=== PATIENT | male | born 1950 | race Caucasian/White ===

== ENCOUNTER 2022-03-12 06:16 | Inpatient (IN) ==
--- NOTE | 2022-02-19 09:31 | PAT Medication Instructions ---
Medication Instructions Date of Service February 19, 2022 Home Medications aspirin 81 mg tablet 81 mg PO QAM atorvastatin 40 mg tablet 40 mg PO QAM cholecalciferol (vitamin D3) 25 mcg (1,000 unit) tablet (Vitamin D3) 25 mcg PO UD coenzyme Q10 100 mg capsule (Co Q-10) 100 mg PO QAM famotidine 20 mg tablet (Pepcid AC) 20 mg PO QAM flaxseed oil 1,000 mg capsule 1,000 mg PO QPM flecainide 100 mg tablet 100 mg PO BID metoprolol tartrate 25 mg tablet 25 mg PO QPM boqeqkccisgy-vtywkuzt-tjegpc tablet 1 tab PO QAM omega-3 fatty acids 500 mg PO QPM saw palmetto 450 mg capsule 450 mg PO BID vitamin B12 2,500 mcg-folic acid 400 mcg disintegrating tablet 5,000 tab PO QAM ASK your prescriber and surgeon aspirin 81 mg tablet 81 mg PO QAM STOP taking 2 weeks before surgery (or as soon as possible if surgery is within 2 weeks) coenzyme Q10 100 mg capsule (Co Q-10) 100 mg PO QAM flaxseed oil 1,000 mg capsule 1,000 mg PO QPM cfqjargxokrb-pzdigxbb-oegjyf tablet 1 tab PO QAM omega-3 fatty acids 500 mg PO QPM saw palmetto 450 mg capsule 450 mg PO BID DO NOT take the morning of surgery cholecalciferol (vitamin D3) 25 mcg (1,000 unit) tablet (Vitamin D3) 25 mcg PO UD vitamin B12 2,500 mcg-folic acid 400 mcg disintegrating tablet 5,000 tab PO QAM Take morning of surgery With a small sip of water, OTHERWISE NOTHING TO EAT OR DRINK AFTER MIDNIGHT: atorvastatin 40 mg tablet 40 mg PO QAM famotidine 20 mg tablet (Pepcid AC) 20 mg PO QAM flecainide 100 mg tablet 100 mg PO BID Take evening before surgery flecainide 100 mg tablet 100 mg PO BID metoprolol tartrate 25 mg tablet 25 mg PO QPM Other Notes If you have any questions please call us at [phone] or [phone] or [phone] or [phone]
--- NOTE | 2022-02-19 11:24 | Anesthesiology Consultation ---
Date of Service February 19, 2022 Assessment & Plan (1) Encounter for pre-operative examination: - COVID screening: Per assessment on 02/19: No known COVID-19 positive contacts or current COVID-19 related symptoms. Travel screen- returned from travel to [place] 02/18 (via car)- stayed at rental house, no large groups/gatherings. Patient vaccinated. At surgeon discretion if preop Covid testing being done. - Cardiology office visit (10/12/21): "paroxysmal atrial fibrillation.. Has been very stable without any complaints or palpitations.. As far as anticoagulation he continues to have a chads vascular score of 1 therefore we will continue with aspirin 81 mg daily for this. When he does turn 73.. That we will give him a score of 2 and we may have to consider additional anticoagulation at that point.. Osteoarthritis of the back.. He is due to followup with his orthopedic surgeon in several weeks." - PCP office visit (12/06/21): Chronic issues stable Chart Review Chart Review: Acceptable Risk for Surgery and Patient seen in Pre Admission Testing Teaching & Discussion Pre-Anesthesia Teaching/Discussion Notes: Instructed NPO after midnight before surgery,except medications with 15 cc of water. Medication instructions provided according to the PAT guidelines. History Surgery Operation Date: 03/12/22 09:20 Proposed Procedures p L2-L3 Decompression and Fusion, L3-L5 Hardware Removal, Spinal Cord Monitoring - Thony Bob DO Height/Weight Height: 5 ft 9.5 in Weight: 87.5 kg Allergies Allergy/AdvReac Type Severity Reaction Status Date / Time No Known Allergies Allergy Unverified 02/16/13 13:37 Medications Home Medications Medication Instructions Recorded Confirmed Last Taken aspirin 81 mg tablet 81 mg PO QAM 02/19/22 02/19/22 Unknown atorvastatin 40 mg tablet 40 mg PO QAM 02/19/22 02/19/22 Unknown cholecalciferol (vitamin D3) 25 25 mcg PO UD 02/19/22 02/19/22 Unknown mcg (1,000 unit) tablet (Vitamin D3) coenzyme Q10 100 mg capsule (Co 100 mg PO QAM 02/19/22 02/19/22 Unknown Q-10) famotidine 20 mg tablet (Pepcid AC) 20 mg PO QAM 02/19/22 02/19/22 Unknown flaxseed oil 1,000 mg capsule 1,000 mg PO QPM 02/19/22 02/19/22 Unknown flecainide 100 mg tablet 100 mg PO BID 02/19/22 02/19/22 Unknown metoprolol tartrate 25 mg tablet 25 mg PO QPM 02/19/22 02/19/22 Unknown znkirbregsng-gkmknrki-hzvpgi tablet 1 tab PO QAM 02/19/22 02/19/22 Unknown omega-3 fatty acids 500 mg PO QPM 02/19/22 02/19/22 Unknown saw palmetto 450 mg capsule 450 mg PO BID 02/19/22 02/19/22 Unknown vitamin B12 2,500 mcg-folic acid 5,000 tab PO QAM 02/19/22 02/19/22 Unknown 400 mcg disintegrating tablet Past Medical History Medical History A-fib Initially diagnosed 2013- a. fib with RVR POD2 after lumbar fusion at [facility]. No recent issues. Follows with cardiology (Dr. Bravo/Malik) Hyperlipidemia Hypertension Sleep apnea CPAP Exercise / Class Metabolic Activity II 4-5 Yardwork/Stairs/Walk up hill (one FS (no CP, no SOB)) Past Surgical History Surgical History History of back surgery lumbar S/P colonoscopy S/P ORIF (open reduction internal fixation) fracture left ankle Past Anesthesia History No Hx of Anesthesia Complications and No Family Hx of Anesthesia Complications History of PONV No Hx of PONV and No Hx of Motion Sickness Social History Smoking Status: Former smoker Do You Dip or Chew Tobacco: No Smoking End Date: Quit 38 yrs ago Hx Alcohol Use: Yes (1 per day) Alcohol type: beer alcohol intake frequency: 0-2 drinks per day (1 beer/evening) Hx Substance Use: No substance use type: does not use Review of Systems Chronic morning cough felt r/t CPAP machine (unchanged). Patient denies chest pain, shortness of breath, dyspnea on exertion, fever, chills, wheezing, palpitations. Physical Exam Vital Signs VITALS BP 136/83 P 50 TEMP 98.0 SP02 96%RA RESP 16 PHYSICAL Full cervical extension range of motion. Full TMJ range of motion. TMD 3.5 finger breaths Mallampati Score 3 Dentition: missing molar, + implant, + cap (front- unsure of upper/lower) Lungs: clear throughout to auscultation Cardiac: regular rate and rhythm, no murmurs noted Spine: normal Carotid arteries: negative bruit Extremities: no edema Lab Results Anesthesia Preop Results Results Anesthesia Widget: WBC 7.86 K/ul (4.8-10.8) 02/19/22 Hgb 16.0 g/dl (14.0-18.0) 02/19/22 Hct 46.0 % (40.1-51.0) 02/19/22 Plt 202 K/uL (130-400) 02/19/22 Na 135 mmol/L (136-145) L 02/19/22 K 4.0 mmol/L (3.5-5.1) 02/19/22 Cl 102 mmol/L (98-107) 02/19/22 CO2 25 mmol/L (21-32) 02/19/22 BUN 16 mg/dl (6-23) 02/19/22 Creat 0.86 mg/dl (0.6-1.4) 02/19/22 Glucose Level 104 mg/dl (70-99(Fasting)) H 02/19/22 PT 11.6 Seconds (9.0-12.0) 02/19/22 PTT 28.0 Seconds (21.0-31.0) 02/19/22 INR 1.1 (0.9-1.1) 02/19/22 Urine Color Yellow 02/19/22 Urine Appearance Clear (Clear) 02/19/22 Urine pH 6.0 (4.5-7.5) 02/19/22 Urine Specific [place] 1.022 (1.000-1.030) 02/19/22 Urine Protein Negative (Negative) 02/19/22 Urine Glucose (UA) Negative (Negative) 02/19/22 Urine Ketones Negative (Negative) 02/19/22 Urine Blood Negative (Negative) 02/19/22 Urine Nitrite Negative (Negative) 02/19/22 Urine Bilirubin Negative (Negative) 02/19/22 Urine Urobilinogen Negative (Negative) 02/19/22 Urine Leukocyte Esterase Negative (Negative) 02/19/22 Blood Type O Positive 02/19/22 Antibody Screen NEGATIVE 02/19/22 Testing Electrocardiogram Date: 02/19/22 Sinus bradycardia at 50 bpm. Otherwise "normal ECG" Chest X-Ray Date: 02/19/22 Findings: + NAD
[~2022-03-12 06:16] MED LIST: ACETAMINOPHEN 500 MG TAB PO SCH; CeleBREX 200 MG CAP PO SCH; GABAPENTIN 300 MG CAP PO SCH; LR 15ML/HR IV SCH; ceFAZolin 2000MG 2,000 MG/15 ML SYR IV SCH
[2022-03-12] MEDS ORDERED: HYDROmorphone INJ 1 MG/ML SYRINGE IV PRN ×2 (06:56→11:07)
[2022-03-12] MEDS ORDERED: ePHEDrine sulfate 50 MG/ML AMP IV PRN (06:56)
[2022-03-12] MEDS ORDERED: fentaNYL citrate 100 MCG/2 ML VIAL IV PRN (06:56)
[2022-03-12] MEDS ORDERED: ATROPINE SULFATE 0.1 MG/ML 10ML SYR IV PRN (06:56)
[2022-03-12] MEDS ORDERED: BUPIVACAINE/EPINEPHRINE 0.25% 1:200,000 30 ML VIAL ONE (07:06)
[2022-03-12] MEDS ORDERED: ceFAZolin 330 MG/ML 1 GM VIAL ONE (07:06)
[2022-03-12] MEDS ORDERED: fentaNYL citrate 100 MCG/2 ML VIAL ONE ×2 (07:15→09:36)
[2022-03-12] MEDS ORDERED: MIDAZOLAM HCL 1 MG/ML 2ML VIAL ONE (07:15)
[2022-03-12] MEDS ORDERED: ROCURONIUM BROMIDE 10 MG/ML 5 ML VIAL IV ONE ×2 (07:16→11:00)
[2022-03-12] MEDS ORDERED: PROPOFOL IV EMULSION 10 MG/ML 20 ML VIAL IV ONE (07:16)
[2022-03-12] MEDS ORDERED: LIDOCAINE 2% MPF LOCAL 5 ML VIAL INFIL ONE (07:16)
[2022-03-12] MEDS ORDERED: ONDANSETRON INJ 2 MG/ML 2 ML VIAL ONE ×2 (07:16→11:00)
--- NOTE | 2022-03-12 07:31 | History & Physical Bridge Note ---
Date of Service March 12, 2022 History & Physical Bridge Note I have examined the patient, reviewed the History & Physical and in the interval since the performance of the History & Physical I have noted the following changes of clinical significance: no changes noted
--- NOTE | 2022-03-12 07:32 | History & Physical Report ---
Date of Service March 12, 2022 Assessment & Plan (1) Neurogenic claudication due to lumbar spinal stenosis: Plan: L2-L3 decompression and fusion, L3-L5 hardware removal History of Present Illness Chief Complaint: Back and bilateral leg pain Primary Care Provider: Rhoda Marvin This is a 71-year-old male who presents with chronic persistent back and leg pain after failing course of nonoperative care is here for surgical intervention. Allergies Allergy/AdvReac Type Severity Reaction Status Date / Time No Known Allergies Allergy Verified 03/12/22 06:37 Home Medications Medication Instructions Recorded Confirmed Type aspirin 81 mg tablet 81 mg PO QAM 02/19/22 03/12/22 History atorvastatin 40 mg tablet 40 mg PO QAM 02/19/22 03/12/22 History cholecalciferol (vitamin D3) 25 25 mcg PO UD 02/19/22 03/12/22 History mcg (1,000 unit) tablet (Vitamin D3) coenzyme Q10 100 mg capsule (Co 100 mg PO QAM 02/19/22 03/12/22 History Q-10) famotidine 20 mg tablet (Pepcid AC) 20 mg PO QAM 02/19/22 03/12/22 History flaxseed oil 1,000 mg capsule 1,000 mg PO QPM 02/19/22 03/12/22 History flecainide 100 mg tablet 100 mg PO BID 02/19/22 03/12/22 History metoprolol tartrate 25 mg tablet 25 mg PO QPM 02/19/22 03/12/22 History ojqkzpcbttfp-qamajqwk-watuia tablet 1 tab PO QAM 02/19/22 03/12/22 History omega-3 fatty acids 500 mg PO QPM 02/19/22 03/12/22 History saw palmetto 450 mg capsule 450 mg PO BID 02/19/22 03/12/22 History vitamin B12 2,500 mcg-folic acid 5,000 tab PO QAM 02/19/22 03/12/22 History 400 mcg disintegrating tablet Past Med/Surg History Medical History A-fib Initially diagnosed 2013- a. fib with RVR POD2 after lumbar fusion at [facility]. No recent issues. Follows with cardiology (Dr. Bravo/Malik) Hyperlipidemia Hypertension Sleep apnea CPAP Surgical History History of back surgery lumbar S/P colonoscopy S/P ORIF (open reduction internal fixation) fracture left ankle Social History Smoking Status: Former smoker Smoking End Date: Quit 38 yrs ago; Second Hand Exposure: No; Do You Dip or Chew Tobacco: No; Tobacco Cessation Education Requested by Patient: No Hx Alcohol Use: Yes (1 per day) Alcohol type: beer Hx Substance Use: No Preferred Language: Arabic Communication Ability: Effective Payment Manager Required: No Beliefs That Will Affect Care: None Current Living Situation: Spouse Other Information That Helps Us Care for You: No Feels Safe at Home: Yes Safety Concerns: Feels Safe At This Time Assistive Devices: CPAP and Glasses Physical Exam Physical Exam: Patient is alert and oriented Heart regular rhythm Lungs clear Results & Data Results & Data ([facility]) Vital Signs (Past 12 Hours) Vital Signs Temp Pulse Resp BP Pulse Ox O2 Del Method 03/12/22 06:43 36.5 C 56 L 18 169/85 H 97 Room Air
[2022-03-12] MEDS ORDERED: DEXAMETHASONE SOD INJ 4 MG/ML VIAL ONE (07:33)
[2022-03-12] MEDS ORDERED: ePHEDrine sulfate 50 MG/ML SYR ONE (08:20)
[2022-03-12] MEDS ORDERED: FLOSEAL HEMOSTATIC MATRIX 10ML TOP ONE (09:34)
--- NOTE | 2022-03-12 09:39 | Operative Report ---
Post Operative Report Pre & Post Diagnosis Operation Date: 03/12/22 07:45 Pre-Op Diagnosis: Lumbar spinal stenosis with neurogenic claudication Post-Op Diagnosis: Same I identified the patient and participated in the time-out.: Yes Procedure Operation Date: 03/12/22 07:45 Actual Procedures #1 removal of posterior instrumentation L3-L4 L4-5. #2 exploration of fusion L3-L4 L4-5. #3 lumbar decompression bilateral medial facetectomies and foraminotomies L1-L2 L2-L3. #4 posterior spinal fusion L2-L3. #5 placement posterior instrumentation L2-L3. #6 interbody fusion L2-L3. #7 placement of Spira 13 x 26 mm cage at L2-L3. #8 placement locally harvested morselized autograft in the posterior gutters. #9 placement of I factor combined with V toss in the interbody space and posterior lateral gutters. Surgeon Thony Bob, Curtain Cleaner Teena Mendoza Estimated Blood Loss 450 Findings Consistent with Post-Op Diagnosis Specimens None Indications This is a 71-year-old male who presents above-mentioned diagnosis after failing since course of nonoperative care is here for the above-mentioned procedure. Description of Procedure Patient was met with identified informed consent obtained. Patient was then taken to the operative suite underwent a patient placed in a prone position the Blanchard table top Guero frame. All bony prominences well-padded eyes inspected to ensure no external pressure placed upon them. This point the lumbar spine was prepped and draped in normal sterile fashion. Sharp dissection with the assistance pericardial form down to and exposing the lamina and transverse processes of L2 and instrumentation at L3-L4 bilaterally. I then proceeded move the hardware bilaterally explore the fusion mass noting it to be mature and intact. Did retain the L4 screw on the left as it was completely ensconced and bone and was created excess blood loss to removed. Then performed a complete laminectomy of L2 partial laminectomy L1 including bilateral medial facetectomies and foraminotomies addressing severe spinal stenosis. Pedicle screws were then placed in L2-L3 bilaterally with assistance of fluoroscopy and appropriately sized george placed. By way of a transforaminal approach on the right complete discectomy of L2-L3 was performed endplates curetted to subcortical bleeding bone and a 13 x 26 mm spiral cage filled with I factor tapped in position. The rods were then compressed locked into final position bilaterally. The transverse processes of L to L3 burred to subcortical bleeding bone. I factor combined with V toss and locally harvested morselized autograft was placed in the posterior gutters. 15 round LANA drain inserted. The incision was then closed with 1 Vicryl in the fascia 2-0 Vicryl subcutaneously and 4 Monocryl for final skin closure. Steri-Strip Steri-Strips placed. Patient waken taken to PACU stable condition. Please note spinal cord monitoring was utilized at the procedure no changes noted. Lastly Teena Mendoza was present out the entire procedure involved the patient positioning complex portions of the surgery and final skin closure. I attest to the content of the Intraoperative Record and any orders documented therein. Any exceptions are noted below.
[2022-03-12] MEDS ORDERED: traMADol HCL 50 MG TABLET PO PRN (11:07)
[2022-03-12] MEDS ORDERED: ACETAMINOPHEN 1,000 MG/100 ML VIAL IV PRN (11:07)
[2022-03-12] MEDS ORDERED: PROMETHAZINE HCL 12.5 MG in SODIUM CHLORIDE 0.9% 50 ML IV PRN (11:07)
[2022-03-12] MEDS ORDERED: LORazepam 0.5 MG TAB PO PRN (11:07)
[2022-03-12] MEDS ORDERED: ALUMINUM/MAGNESIUM SUSP 30 ML UDC PO PRN (11:07)
[2022-03-12] MEDS ORDERED: ONDANSETRON INJ 2 MG/ML 2 ML VIAL IV PRN (11:07)
[2022-03-12] MEDS ORDERED: HYDROmorphone INJ 0.5 MG/0.5 ML SYR IV PRN (11:07)
[2022-03-12] MEDS ORDERED: METOCLOPRAMIDE HCL INJ 5 MG/ML 2 ML VIAL IV PRN (11:07)
[2022-03-12] MEDS ORDERED: LORazepam 0.5 MG in SYRINGE 0.25 ML IV PRN (11:07)
[2022-03-12] MEDS ORDERED: SOD PHOSPHATE/SOD BIPHOSPHATE ENEMA 132 ML BTL PR PRN (11:07)
[2022-03-12] MEDS ORDERED: ONDANSETRON 4 MG OD TAB PO PRN (11:07)
[2022-03-12] MEDS ORDERED: hydrOXYzine HCl 25 MG TAB PO PRN (11:07)
[2022-03-12] MEDS ORDERED: bisacodyL 10 MG SUPP PR PRN (11:07)
[2022-03-12] MEDS ORDERED: FAMOTIDINE 20 MG TAB PO PRN (11:07)
[2022-03-12] MEDS ORDERED: diphenhydrAMINE Capsule 25 MG CAP PO PRN (11:07)
[2022-03-12] MEDS ORDERED: MAGNESIUM HYDROXIDE SUSP 30 ML UDC PO PRN (11:07)
[2022-03-12] MEDS ORDERED: oxyCODONE HCL IR 5 MG TAB (IMMEDIATE RELEASE) PO PRN (11:07)
[2022-03-12] MEDS ORDERED: NALOXONE HCL 0.4 MG/1 ML VIAL/CARP IV PRN (11:07)
[2022-03-12] MEDS: SODIUM CHLORIDE 0.9% 1000ML 1,000 ML IV SCH ×2 (11:33→20:55)
[2022-03-12] MEDS ORDERED: CHOLECALCIFEROL 1,000 UNITS 25 MCG TAB PO SCH (12:00)
--- NOTE | 2022-03-12 13:03 | Fluoroscopy Report ---
FL lumbar spine 2-3V CLINICAL HISTORY: L3-5 REMOVE HARDWARE L2-3 DFI COMPARISON STUDY: None. FLUOROSCOPY TIME: 11 seconds.. FINDINGS: 2 fluoroscopic spot images of the lumbar spine demonstrate L2-L3 posterior decompression an d fusion with pedicle screws and rods. The hardware appears intact. A disc spacer is in place. A righ t L4 pedicle screw and L4-5 disc spacer also noted. IMPRESSION: Fluoroscopic assistance provided for L2-L3 posterior decompression and fusion. ACT 112: Negative or not required by law. Electronically signed by: Rashid Valera M.D. 03/12/2022 1:02 PM
--- NOTE | 2022-03-12 13:06 | Hospitalist Consultation ---
Date of Consultation March 12, 2022 Assessment & Plan (1) Neurogenic claudication due to lumbar spinal stenosis: POD #0 - Lumbar Decompression and Fusion - Pain control, DVT prophylaxis, activity per primary service - Encourage incentive spirometry - AM labs (2) A-fib: Continue flecainide and metoprolol (3) Hyperlipidemia: Continue statin (4) Hypertension: BP controlled at present - continue metoprolol (5) Sleep apnea: Pt can use own CPAP - order placed. Plan Pt seen and reviewed with collaborating physician, Dr. Hope. Plan of care discussed and as outlined above. We will continue to follow this patient with you. Thank you for this consultation. A member of the [facility] Team is available 21/01 via [facility]. Please don't hesitate to reach out with questions. Amira Llanes PA-C Supervising Physician Co-Signing Physician Notes Patient is a 71-year-old male with history of obstructive sleep apnea and other medical problems was consulted for postop medical management. Patient is doing well postoperatively. Complains of some nausea earlier but currently resolved. Also reports some throat discomfort postoperatively. Denies any significant pain at the surgical site. Also denies any chest pain, shortness of breath, dizziness, abdominal pain. On exam patient is well-built and nourished, no apparent distress, normocephalic atraumatic, EOMI, normal breath sounds, clear to auscultation, S1-S2, no murmur, no pedal edema, abdomen soft, nontender, normal bowel sounds, alert, awake, oriented, grossly no focal deficits, Back: Surgical site in dressing. Lumbar spinal stenosis with neurogenic claudication S/P surgery. Monitor for postop anemia. Incentive spirometer. Pain control, DVT prophylaxis and PT OT as per primary team. Continue CPAP for obstructive sleep apnea. Patient currently not on any anticoagulation for A. fib. I personally reviewed the record. Patient is interviewed and examined at bedside. Patient's care is coordinated with Narcisa Llanes PA-C. Please refer to the documentation above for details of patient's presentation and for discussion of other issues. History of Present Illness Reason for Consultation: Post-operative Medical Management Requesting Physician: Dr. Thony Bob Attending Physician: Thony Bob, DO History of Present Illness This is a 71 y/o male with PMH of PAF, hyperlipidemia, GERD, and lumbar spinal stenosis who underwent lumbar decompression and fusion today by Dr. Bob. Pt reports that pre-operatively he had some chronic numbness and tingling in his feet related to prior injuries. Currently, he reports overall feeling okay. He did have some mild nausea but this seems to be improving. He also c/o sore throat but denies chest pain, SOB, vomiting, diarrhea, HOLDER, dizziness. He is having some post-operative pain but overall controlled. He does feel groggy from the sedation. Pt uses CPAP for ANTONIO and has brought with him. Allergies Allergy/AdvReac Type Severity Reaction Status Date / Time No Known Allergies Allergy Verified 03/12/22 06:37 Home Medications Medication Instructions Recorded Confirmed Type aspirin 81 mg tablet 81 mg PO QAM 02/19/22 03/12/22 History atorvastatin 40 mg tablet 40 mg PO QAM 02/19/22 03/12/22 History cholecalciferol (vitamin D3) 25 25 mcg PO UD 02/19/22 03/12/22 History mcg (1,000 unit) tablet (Vitamin D3) coenzyme Q10 100 mg capsule (Co 100 mg PO QAM 02/19/22 03/12/22 History Q-10) famotidine 20 mg tablet (Pepcid AC) 20 mg PO QAM 02/19/22 03/12/22 History flaxseed oil 1,000 mg capsule 1,000 mg PO QPM 02/19/22 03/12/22 History flecainide 100 mg tablet 100 mg PO BID 02/19/22 03/12/22 History metoprolol tartrate 25 mg tablet 25 mg PO QPM 02/19/22 03/12/22 History djbuoureeaqg-jeyarmxt-rwxqfk tablet 1 tab PO QAM 02/19/22 03/12/22 History omega-3 fatty acids 500 mg PO QPM 02/19/22 03/12/22 History saw palmetto 450 mg capsule 450 mg PO BID 02/19/22 03/12/22 History vitamin B12 2,500 mcg-folic acid 5,000 tab PO QAM 02/19/22 03/12/22 History 400 mcg disintegrating tablet oxycodone 5 mg tablet 5 mg PO Q6H PRN pain, severe #30 03/12/22 Rx tabs tramadol 50 mg tablet 50 mg PO Q6H PRN pain, moderate 03/12/22 Rx #30 tabs Patient History Medical History (Updated 03/12/22 @ 13:41 by Narcisa Llanes PA-C) A-fib Initially diagnosed 2013- . fib with RVR POD2 after lumbar fusion at [facility]. No recent issues. Follows with cardiology (Dr. Bravo/Malik) Hyperlipidemia Hypertension Sleep apnea CPAP Surgical History History of back surgery lumbar S/P colonoscopy S/P ORIF (open reduction internal fixation) fracture left ankle Social History Smoking Status: Former smoker Smoking End Date: Quit 38 yrs ago; Second Hand Exposure: No; Do You Dip or Chew Tobacco: No; Tobacco Cessation Education Requested by Patient: No Hx Alcohol Use: Yes (1 per day) Alcohol type: beer Hx Substance Use: No Preferred Language: Nigerian Communication Ability: Effective Hydropress Operator Required: No Beliefs That Will Affect Care: None Current Living Situation: Spouse Other Information That Helps Us Care for You: No Feels Safe at Home: Yes Safety Concerns: Feels Safe At This Time Assistive Devices: CPAP and Glasses Review of Systems Review of Systems: All systems reviewed & are unremarkable except as noted in HPI & below Constitutional: no fever, no chills and no sweats Eyes: no diplopia Ear, Nose, Mouth, Throat: + sore throat Respiratory: no cough, no dyspnea and no wheezing Cardiovascular: no chest pain, no palpitations and no edema Gastrointestinal: + nausea; no abdominal pain, no vomiting and no diarrhea/loose stools Genitourinary: no hematuria Musculoskeletal: + back pain Integumentary: no rash and no yellowing of the skin Neurologic: + paresthesia; no generalized weakness and no dizziness Psychiatric: no depression and no anxiety Physical Exam Constitutional: well developed and well nourished; no acute distress Eyes: + anicteric sclerae ENMT: external ear and nose normal, oropharynx normal Neck: trachea midline Respiratory: no respiratory distress and no labored breathing Auscultation: lungs clear to auscultation bilaterally; no rales, no rhonchi and no wheezes Cardiovascular: Rate/Rhythm: regular rate and regular rhythm Vessels: dorsalis pedis pulses present and radial pulses present Extremities: no pedal edema Gastrointestinal (Abdomen): Inspection/Auscultation: normal bowel sounds; abdomen not distended Percussion/Palpation: abdomen soft Musculoskeletal: Head/Neck/Chest: normocephalic, head atraumatic and neck supple Skin: no jaundice Neurologic: moves all extremities; no focal motor deficits Psychiatric: A+Ox3, euthymic affect Genitourinary: Carey catheter in place Results & Data Results & Data ([facility]) Vital Signs (Past 12 Hours) Vital Signs Temp Pulse Pulse Resp BP Pulse Ox O2 Del Method 03/12/22 12:05 62 12 122/73 95 Nasal Cannula 03/12/22 11:30 36.4 C L 63 16 123/72 93 Nasal Cannula 03/12/22 11:00 36.4 C L 61 16 136/77 93 Nasal Cannula 03/12/22 10:40 65 13 133/74 96 Nasal Cannula 03/12/22 10:30 67 14 131/71 96 Nasal Cannula 03/12/22 10:20 69 12 143/77 H 98 Oxymask 03/12/22 10:10 72 16 149/80 H 98 Oxymask 03/12/22 10:00 56 L 12 136/71 89 L Oxymask 03/12/22 09:51 36.1 C L 78 20 152/87 H 99 Oxymask 03/12/22 06:43 36.5 C 56 L 18 169/85 H 97 Room Air O2 Flow Rate 03/12/22 12:05 2 03/12/22 11:30 2 03/12/22 11:00 2 03/12/22 10:40 3 03/12/22 10:30 3 03/12/22 10:20 5 03/12/22 10:10 10 03/12/22 10:00 10 03/12/22 09:51 10 03/12/22 06:43 Laboratory Results 03/12/22 06:30 SARS-CoV-2, RNA, NAAT NEGATIVE Medications Administered Sodium Chloride (Nss 1000ml) 1,000 mls @ 100 mls/hr IV .Q10H BAUTISTA Stop: 04/11/22 11:06 Last Admin: 03/12/22 11:33 Dose: 100 mls/hr Documented By: CAW Vitamin D (Cholecalciferol 1,000 Units 25 Mcg Tab) 1,000 units PO MoFr@0900 BAUTISTA Stop: 04/11/22 11:59 Last Admin: 03/12/22 12:22 Dose: 1,000 units Documented By: KATELYNN Discontinued Medications Acetaminophen (Acetaminophen 500 Mg Tab) 1,000 mg PO PREOP BAUTISTA Stop: 03/12/22 18:00 Last Admin: 03/12/22 07:03 Dose: 1,000 mg Documented By: [facility] Bupivacaine HCl/Epinephrine Bitart (Bupivacaine/Epinephrine 0.25% 1:200,000 30 Ml Vial) Confirm Administered Dose 30 ml .ROUTE .STK-MED ONE Stop: 03/12/22 07:07 Last Admin: 03/12/22 08:09 Dose: 20 ml Documented By: MARLY Cefazolin Sodium (Cefazolin 330 Mg/Ml 1 Gm Vial) Confirm Administered Dose 990 mg .ROUTE .STK-MED ONE Stop: 03/12/22 07:07 Last Admin: 03/12/22 08:15 Dose: 990 mg Documented By: Agatha Celecoxib (Celebrex 200 Mg Cap) 200 mg PO PREOP BAUTISTA Stop: 03/12/22 18:00 Last Admin: 03/12/22 07:03 Dose: 200 mg Documented By: [facility] Gabapentin (Gabapentin 300 Mg Cap) 300 mg PO PREOP BAUTISTA Stop: 03/12/22 18:00 Last Admin: 03/12/22 07:03 Dose: 300 mg Documented By: [facility] Lactated Ringer's (Lr) 1,000 mls @ 15 mls/hr IV .Q24H BAUTISTA Stop: 03/13/22 05:59 Last Infusion: 03/12/22 07:40 Dose: 0 mls/hr Documented By: Sj Admin: 03/12/22 07:11 Dose: 15 mls/hr Documented By: [facility] Cefazolin Sodium (Ancef 2000mg) 2,000 mg in 15 mls @ 3.75 mls/min IV PREOP BAUTISTA; Protocol Stop: 03/12/22 18:00 Last Admin: 03/12/22 07:40 Dose: 3.75 mls/min Documented By: RACH Miscellaneous ( Floseal Hemostatic Matrix 10ml) 40 ml TOP ONCE ONE Stop: 03/12/22 09:35 Last Admin: 03/12/22 11:34 Dose: Not Given Documented By: KATELYNN
--- NOTE | 2022-03-12 14:27 | Anesthesiology Progress Note ---
Date of Service March 12, 2022 Anesthesia Post Procedure Vital Signs Vital Signs: Temp Pulse Pulse Resp BP Pulse Ox O2 Del Method 03/12/22 13:00 36.4 C L 67 16 129/73 97 Nasal Cannula 03/12/22 12:05 62 12 122/73 95 Nasal Cannula 03/12/22 11:30 36.4 C L 63 16 123/72 93 Nasal Cannula 03/12/22 11:00 36.4 C L 61 16 136/77 93 Nasal Cannula 03/12/22 10:40 65 13 133/74 96 Nasal Cannula 03/12/22 10:30 67 14 131/71 96 Nasal Cannula 03/12/22 10:20 69 12 143/77 H 98 Oxymask 03/12/22 10:10 72 16 149/80 H 98 Oxymask 03/12/22 10:00 56 L 12 136/71 89 L Oxymask 03/12/22 09:51 36.1 C L 78 20 152/87 H 99 Oxymask 03/12/22 06:43 36.5 C 56 L 18 169/85 H 97 Room Air O2 Flow Rate 03/12/22 13:00 2 03/12/22 12:05 2 03/12/22 11:30 2 03/12/22 11:00 2 03/12/22 10:40 3 03/12/22 10:30 3 03/12/22 10:20 5 03/12/22 10:10 10 03/12/22 10:00 10 03/12/22 09:51 10 03/12/22 06:43 Transfer of Care Handoff Completed per policy Notes Mental Status: alert / awake / arousable and participated in evaluation Patient Amnestic to Procedure: Yes Nausea / Vomiting: adequately controlled Pain: adequately controlled Airway Patency, RR, SpO2: stable & adequate BP & HR: stable & adequate Hydration State: stable & adequate Anesthetic Complications: no major complications apparent and Pt Satisfied with anesthetic care
[2022-03-12] MEDS: ceFAZolin 2000MG 2,000 MG/15 ML SYR IV SCH (16:21)
[2022-03-12] MEDS: DOCUSATE SODIUM/SENNA 50/8.6MG TAB PO SCH (20:55)
[2022-03-12] MEDS: FLECAINIDE ACETATE 100 MG TABLET PO SCH (20:56)
[2022-03-12] MEDS: METOPROLOL TARTRATE 25 MG TAB PO SCH (20:56)
[2022-03-13] MEDS: ceFAZolin 2000MG 2,000 MG/15 ML SYR IV SCH (00:48)
[2022-03-13] MEDS: POLYETHYLENE (MIRALAX) 17 GM PACK PO SCH ×4 (06:06→22:58)
[2022-03-13 08:20] LABS: Hematocrit (blood only) 37.2 % (40.1-51.0); Hemoglobin 13.2 g/dl (14.0-18.0); Mean Corpuscular Hemoglobin 32.8 pg (25.0-34.0); Mean Corpuscular Hgb Conc 35.5 g/dL (32.0-36.0); Mean Corpuscular Volume 92.5 fL (80.0-100.0); Mean Platelet Volume 10.2 fL (9.4-12.4); Platelet Count 185 K/uL (130-400); RDW Coefficient of Variation 12.8 % (11.5-14.5); RDW Standard Deviation 43.7 fL (36.4-46.3); Red Blood Count 4.02 M/uL (4.63-6.08); White Blood Count 24.34 K/ul (4.8-10.8)
[2022-03-13] MEDS: ASPIRIN 81 MG ECTAB PO SCH (08:27)
[2022-03-13] MEDS: CYANOCOBALAMIN (B-12) 2,500 MCG TABLET SL SCH (08:28)
[2022-03-13] MEDS: CEROVITE ADV FORMULA TAB PO SCH (08:28)
[2022-03-13] MEDS: FOLIC ACID 400 MCG TAB PO SCH (08:28)
[2022-03-13] MEDS: FLECAINIDE ACETATE 100 MG TABLET PO SCH ×2 (08:29→21:23)
[2022-03-13] MEDS: ATORVASTATIN 40 MG TAB PO SCH (08:29)
[2022-03-13] MEDS: dexAMETHasone 6 MG in SYRINGE 0 ML IV SCH (08:30)
[2022-03-13] MEDS: FAMOTIDINE 20 MG TAB PO SCH (08:30)
[2022-03-13 08:43] LABS: Basophils # (auto) 0.03 K/uL (0-0.2); Basophils % (auto) 0.1 %; Immature Granulocytes # (auto) 0.28 K/uL (0.00-0.02); Immature Granulocytes % (auto) 1.2 %; Lymphocytes # (auto) 1.36 K/uL (1.2-3.4); Lymphocytes % (auto) 5.6 %; Monocytes # (auto) 1.93 K/uL (0.24-0.82); Monocytes % (auto) 7.9 %; Neutrophils # (auto) 20.74 K/uL (1.4-6.5); Neutrophils % (auto) 85.2 %
[2022-03-13 08:44] LABS: BUN Creatinine Ratio 19.3 (10-20); Calcium 8.7 mg/dl (8.5-10.1); Creatinine Clr Calc Pharmacy 85.6 ml/min; Est GFR (African American) 101.2 ml/min; Est GFR (Non-African American) 87.3 ml/min; Magnesium 1.9 mg/dl (1.7-2.4); Potassium 4.7 mmol/L (3.5-5.1)
[2022-03-13] MEDS ORDERED: NON-FORMULARY MEDICATION (Coenzyme Q10 [Co Q-10] 100 mg Capsule) PO SCH (09:00)
--- NOTE | 2022-03-13 09:20 | Hospitalist Progress Note ---
Date of Service March 13, 2022 Assessment & Plan (1) Neurogenic claudication due to lumbar spinal stenosis: Plan: POD# 1 L2-L3 decompression and fusion, L3-L5 hardware removal by Dr. Bob Activity and wound care orders as per ortho Pain control with bowel regimen PT/OT EBL 450 cc, LANA output 388 cc Acute blood loss anemia Preop Hgb 16.0 --> 13.2 No indications for transfusion Monitor CBC Leukocytosis WBC 24K Likely due to steroids/stress response No signs of infection Monitor CBC (2) A-fib: Plan: Chronic paroxysmal atrial fibrillation Continue flecainide and metoprolol Not anticoagulated due to low CHADS2 score (3) Hyperlipidemia: Plan: Continue statin (4) Hypertension: Plan: BP controlled, continue metoprolol (5) Sleep apnea: Plan: CPAP as per home settings DVT prophylaxis SCDs as per spine Ortho Admission and Anticipated Discharge Date Admission Date: March 12, 2022 Supervising Physician Co-Signing Physician Notes Patient is seen and examined at bedside. Back pain at surgical site is controlled. Awaiting for PT this morning. + Flatus but no bowel movement today. Sore throat is better today. Denies any chest pain, shortness of breath, dizziness, nausea, abdominal pain. Sitting in chair during my encounter. On exam patient is well-built and nourished, no apparent distress, normocephalic atraumatic, EOMI, normal breath sounds, clear to auscultation, S1-S2, no murmur, no pedal edema, abdomen soft, nontender, normal bowel sounds, alert, awake, oriented, grossly no focal deficits, Back: Surgical site in dressing, +Drain. Lumbar spinal stenosis with neurogenic claudication S/P surgery. Monitor for postop anemia. Leukocytosis secondary to steroids likely. Continue Incentive spirometer. Pain control, DVT prophylaxis and PT OT as per primary team. Continue CPAP for obstructive sleep apnea. Patient currently not on any anticoagulation for A. fib. I personally reviewed the record. Patient is interviewed and examined at bedside. Patient's care is coordinated with Hien Loo ORDER WORKER. Please refer to the documentation above for details of patient's presentation and for discussion of other issues. Subjective Follow-up for medical management, s/p L2-L3 decompression and fusion, L3-L5 hardware removal. Patient seen and examined. Sitting up in the chair. Reports pain is well controlled. Denies numbness, tingling, weakness to lower extremities. Eager for Carey catheter to be removed. + flatus however no BM, reports "feeling full". Denies abdominal pain and nausea. No chest pain or shortness of breath. Denies lightheadedness and dizziness. Review of Systems Review of Systems: ROS per HPI, all other systems reviewed and negative Physical Exam Constitutional: WD/WN, vitals as above no acute distress Sitting up in the chair Respiratory: normal respiratory effort, lungs clear to auscultation Cardiovascular: Rate/Rhythm: regular rate and regular rhythm Vessels: normal peripheral pulses Extremities: no edema Gastrointestinal (Abdomen): Inspection/Auscultation: + abdomen distended (Semifirm) Percussion/Palpation: abdomen soft; abdomen nontender Musculoskeletal: S/p back surgery, staining noted to dressing however not outside of previously outlined area, drain in place draining bloody drainage Skin: no rashes, warm and dry Neurologic: no focal motor deficits Psychiatric: A+Ox3, euthymic affect Results & Data Results & Data ([facility]) Vital Signs (Past 12 Hours) Vital Signs Temp Pulse Resp BP Pulse Ox O2 Del Method 03/13/22 07:37 36.6 C 64 17 124/67 98 Room Air 03/13/22 03:06 36.4 C L 71 18 136/68 94 Room Air Laboratory Results Short CBC 03/13/22 Range/Units 08:04 WBC 24.34 H (4.8-10.8) K/ul Hgb 13.2 L (14.0-18.0) g/dl Hct 37.2 L (40.1-51.0) % Plt Count 185 (130-400) K/uL BMP 03/13/22 08:04 Sodium 137 Potassium 4.7 Chloride 106 Carbon Dioxide 26 BUN 16 Creatinine 0.83 Glucose 144 H Calcium 8.7
--- NOTE | 2022-03-13 11:02 | Orthopedic Progress Note ---
Date of Service March 13, 2022 Assessment & Plan (1) Neurogenic claudication due to lumbar spinal stenosis: Plan: At this time we will encourage physical therapy monitor his LANA output overly discharge home next day or so. Admission and Anticipated Discharge Date Admission Date: March 12, 2022 Subjective Patient's back pain is controlled leg symptoms markedly improved Physical Exam Physical Exam: On exam the patient is in the chair at the bedside. Is able to stand and ambulate without difficulty. Discussed pain to testing. LANA drain functioning. Results & Data ([facility]) Vital Signs (Past 12 Hours) Vital Signs Temp Pulse Resp BP Pulse Ox O2 Del Method 03/13/22 07:37 36.6 C 64 17 124/67 98 Room Air 03/13/22 03:06 36.4 C L 71 18 136/68 94 Room Air
[2022-03-13] MEDS: ACETAMINOPHEN 500 MG TAB PO PRN (17:33)
[2022-03-13] MEDS: METOPROLOL TARTRATE 25 MG TAB PO SCH (21:23)
[2022-03-13] MEDS: DOCUSATE SODIUM/SENNA 50/8.6MG TAB PO SCH (21:24)
[2022-03-14] MEDS: POLYETHYLENE (MIRALAX) 17 GM PACK PO SCH (06:10)
[2022-03-14 07:39] LABS: Hematocrit (blood only) 37.6 % (40.1-51.0); Hemoglobin 13.3 g/dl (14.0-18.0); Mean Corpuscular Hemoglobin 33.3 pg (25.0-34.0); Mean Corpuscular Hgb Conc 35.4 g/dL (32.0-36.0); Mean Platelet Volume 10.5 fL (9.4-12.4); Platelet Count 201 K/uL (130-400); RDW Coefficient of Variation 13.1 % (11.5-14.5); RDW Standard Deviation 44.7 fL (36.4-46.3); White Blood Count 21.29 K/ul (4.8-10.8)
[2022-03-14] MEDS: ACETAMINOPHEN 500 MG TAB PO PRN (08:28)
[2022-03-14] MEDS: FLECAINIDE ACETATE 100 MG TABLET PO SCH (08:29)
[2022-03-14] MEDS: ATORVASTATIN 40 MG TAB PO SCH (08:29)
[2022-03-14] MEDS: ASPIRIN 81 MG ECTAB PO SCH (08:29)
[2022-03-14] MEDS: CYANOCOBALAMIN (B-12) 2,500 MCG TABLET SL SCH (08:30)
[2022-03-14] MEDS: CEROVITE ADV FORMULA TAB PO SCH (08:30)
[2022-03-14] MEDS: FOLIC ACID 400 MCG TAB PO SCH (08:30)
[2022-03-14] MEDS: FAMOTIDINE 20 MG TAB PO SCH (08:30)
[2022-03-14] MEDS: dexAMETHasone 6 MG in SYRINGE 0 ML IV SCH (08:31)
--- NOTE | 2022-03-14 09:49 | Discharge Summary ---
Date of Service March 14, 2022 Admission HPI Per Admitting Provider This is a 71-year-old male who presents with chronic persistent back and leg pain after failing course of nonoperative care is here for surgical intervention. Principal Diagnosis Lumbar spinal stenosis with neurogenic claudication Discharge Data Allergies Allergy/AdvReac Type Severity Reaction Status Date / Time No Known Allergies Allergy Verified 03/12/22 06:37 Consultations 03/12/22 11:07 Consult Hospitalist Routine Procedures Performed Operation Date: 03/12/22 07:45 Actual Procedures p L2-L3 Decompression and Fusion, L3-L5 Hardware Removal, Spinal Cord Monitoring, Interbody Placement L2-L3(Not Applicable) - Thony Bob DO Ordered Studies 03/12/22 07:45 FL lumbar spine 2-3V Routine Hospital Course (1) Neurogenic claudication due to lumbar spinal stenosis: Patient with lumbar decompression fusion tolerated as well as taken orthopedic for postop labor postop day 1 is up and ambulating progress postop day #2. LANA drain decreasing appropriate. Excellent strength testing. Subsequent discharge home. Discharge orders instructions found the chart for review. Total Time Total Time Spent Total Time Spent (In Minutes): 20 minutes Discharge Plan Discharge Items Patient Disposition: Home - Self-Care Reason For Visit: Disc Disorders with radiculopathy, Lumbar Region Discharge Diagnosis: Lumbar spinal stenosis with neurogenic claudication Activity: As commented below Non-emergency contact: Primary Care Provider Call non-emergency contact if: you have any medication questions Follow-up/Referrals: Rhoda Marvin D.O. [Primary Care Provider] - Diet: Regular Addtl Attending Provider Instructions: ACTIVITY RECOMMENDATIONS: SELF CARE INSTRUCTIONS AFTER THORACIC/LUMBAR FUSIONS 1. You may walk to your tolerance. It is good exercise for your legs and back. Expect some back and intermittent leg aches and pains. 2. You may perform "counter-top" level activities (make a sandwich, miroslava with a project, etc.). 3. No bending or lifting of more than 10 pounds or back twisting of any nature (roll like a log when turning in bed). 4. You may ride in a car for 20-30 minutes at a time. No driving until after your first visit with your doctor. 5. Frequent changes of position and restricting sitting to 30 minutes at a time will help limit the amount of back spasms and stiffness you may experience. 6. You may discontinue the use of ambulatory aids (cane, crutches, etc.) once your strength and confidence allow. 7. You may insurance verification clerk the shower and let water strike your incision when you arrive home at least once daily. Do not take a tub bath, sit in a hot tub or go into a swimming pool until after your first recheck in the office. SPECIAL CARE INSTRUCTIONS: VERY IMPORTANT TO READ AND REVIEW A. Your surgical incision has been closed with a cosmetic suture under the skin that will dissolve in about 6 weeks. In 14 days, you can use a pair of clean scissors and cut the suture that is left outside of the skin at the ends of your incision. 1. The small skin tapes can be removed 7 days after surgery if they have not fallen off by that point. 2. You may keep the wound open to air as much as possible to promote healing after post-op day number 5 unless told otherwise by your doctor. 3. If you think the wound looks like it is becoming infected (redness or worsening drainage) and/or you are experiencing fever, chill or worsening back pain and muscle spasms, contact the office so that we may evaluate you as soon as possible. B. Complications are uncommon, but please contact us if you have any signs or symptoms of: 1. wound infection (fever higher than 102.5 degrees F, redness, separation of wound, drainage, or increasing pain from the incision) 2. blood clots in legs (pain, swelling, redness and warmth in legs) 3. urinary tract infection (fever higher than 102.5 degrees F, burning upon urination or increased frequency of urination) 4. nerve problems (inability to walk on your toes or heels, numbness, loss of bowel or bladder control) 5. any other symptoms that concern you C. Please call the office at if you have any concerns or questions about your operation or recovery. D. No smoking! Smoking drastically decreases the chance of a solid fusion. E. Do not take any anti-inflammatory medications (Indocin, Advil, Motrin, Aspirin, Naprosyn, etc.) as these may inhibit the chance of a solid fusion. Tylenol is okay to take for pain. MANAGING PAIN AFTER SPINAL SURGERY 1. Narcotic medication is intended for short-term use and will be provided for surgical pain. Surgical pain usually lasts for a period of 4-6 weeks. Narcotic medication includes Percocet, Vicodin, Darvocet, Tylenol #3 or Lortab. 2. Longer-term pain is more appropriately treated with non-narcotic medication such as Tylenol ES. 3. Muscle spasm is not appropriately treated with narcotics. Muscle relaxers such as Soma, Flexeril or Skelaxin can be used along with Tylenol ES. 4. Remember that we all live with some "aches and pains". This is not unusual or uncommon after an injury or as we get older. a. Back pain is expected and may include muscle spasms for 4 to 6 weeks after surgery. The pain should gradually improve. If the pain worsens for no apparent reason, please contact the office. b. Intermittent leg pain may also be experienced and should not be concerned about unless it worsens for no apparent reason. If so, please contact the office. 5. We will provide appropriate medication within the normal guidelines of their prescribed use. We will also be very cautious and aware of potential abuse and extended duration of patients' medication needs. a. Pain medications are for your comfort and to assist with sleep and rest so that the tissue can heal. They are not provided in order to return to normal activity and should not be used through the day. To do so or worsening pain at night can result from ongoing tissue damage and development of tolerance to the prescribed medicine. 6. Please allow 2-3 days to process refills. Prescriptions will not be mailed but must be picked up at the office. FOLLOW UP VISIT: Keep your scheduled follow-up appointment. Any questions, please call the office at . Pending Studies at Discharge: No Stand-Alone Forms: My [facility] [employer], Smoking Cessation Medications and DC Order Prescriptions: New oxycodone 5 mg tablet 5 mg PO Q6H PRN (Reason: pain, severe) Qty: 30 0RF tramadol 50 mg tablet 50 mg PO Q6H PRN (Reason: pain, moderate) Qty: 30 0RF Continued atorvastatin 40 mg Tablet 40 mg PO QAM flaxseed oil 1,000 mg Capsule 1,000 mg PO QPM Rx Instructions: administer with a meal famotidine [Pepcid AC] 20 mg Tablet 20 mg PO QAM flecainide 100 mg Tablet 100 mg PO BID aspirin 81 mg Tablet 81 mg PO QAM [id number] Tablet 1 tab PO QAM coenzyme Q10 [Co Q-10] 100 mg Capsule 100 mg PO QAM omega-3 fatty acids Capsule 500 mg PO QPM metoprolol tartrate 25 mg Tablet 25 mg PO QPM saw palmetto 450 mg Capsule 450 mg PO BID Rx Instructions: give with food (meal/snack) cholecalciferol (vitamin D3) [Vitamin D3] 25 mcg (1,000 unit) Tablet 25 mcg PO UD Rx Instructions: mondays and fridays vitamin [id number] acid 2,500-400 mcg Tablet,Disintegrating 5,000 tab PO QAM Discharge Orders: Discharge Order (Routine); Ordered 03/14/22 Ordered By: Thony Bob Admission Data Admit Date/Time: 03/12/22 09:42 Attending Provider: Thony Bob Admit Provider: Thony Bob Primary Care Provider: Rhoda Marvin Other Providers: Emma Leonard ; Pratik Caballero
--- NOTE | 2022-03-14 12:12 | Hospitalist Progress Note ---
Date of Service March 14, 2022 Assessment & Plan (1) Neurogenic claudication due to lumbar spinal stenosis: Plan: POD# 2 L2-L3 decompression and fusion, L3-L5 hardware removal by Dr. Bob Activity and wound care orders as per ortho Pain control with bowel regimen PT/OT EBL 450 cc, LANA output 558 cc Acute blood loss anemia Preop Hgb 16.0 --> 13.2 --> 13.3 No indications for transfusion Monitor CBC Leukocytosis WBC 24K --> 21K Likely due to steroids/stress response No signs of infection Monitor CBC (2) A-fib: Plan: Hx of p. A.fib Continue flecainide and metoprolol Not anticoagulated due to low CHADS2 score (3) Hyperlipidemia: Plan: Continue statin (4) Hypertension: Plan: BP controlled, continue metoprolol (5) Sleep apnea: Plan: CPAP as per home settings DVT prophylaxis SCDs as per spine Ortho Dispo - medically stable for d/c today Admission and Anticipated Discharge Date Admission Date: March 12, 2022 Supervising Physician Co-Signing Physician Notes Patient is seen and examined by me, care coordinated w/ LAKEISHA Thompson, pls refer to her note above for further detail. Patient underwent decompression and fusion of lumbar spine, with Dr. Bob, tolerated procedure well. Currently sitting up in the chair, in no acute distress. He has been ambulating. Denies any fevers, chills, chest pain, shortness of breath. No issues with voiding or bowel movements. On exam patient is well-built and nourished, no distress, normocephalic atraumatic, EOMI, normal breath sounds, clear to auscultation, S1-S2, no murmur, no pedal edema, abdomen soft, nontender, normal bowel sounds, alert, awake, oriented, moving extremities. Back: Surgical site in dressing, +Drain. Postop acute blood loss anemia noted, however hemoglobin stable from yesterday. Leukocytosis secondary to steroids likely. MD Ada Subjective Follow-up for medical management, s/p L2-L3 decompression and fusion, L3-L5 hardware removal. Patient seen and examined. Sitting up in the chair. Tolerating therapy, pain well controlled. Denies chest pain and shortness of breath. No lightheadedness or dizziness. Denies abdominal pain and nausea. Urinating without difficulty, + BM Review of Systems Review of Systems: ROS per HPI, all other systems reviewed and negative Physical Exam Constitutional: WD/WN, vitals as above Respiratory: normal respiratory effort, lungs clear to auscultation Cardiovascular: Rate/Rhythm: regular rate and regular rhythm Vessels: normal peripheral pulses Extremities: no edema Gastrointestinal (Abdomen): Percussion/Palpation: abdomen soft; abdomen nontender Musculoskeletal: s/p back surgery, strength strong and equal BLE Skin: no rashes, warm and dry Neurologic: no focal motor deficits Psychiatric: A+Ox3, euthymic affect Results & Data Results & Data ([facility]) Vital Signs (Past 12 Hours) Vital Signs Temp Pulse Resp BP Pulse Ox O2 Del Method 03/14/22 07:03 36.6 C 63 16 117/67 97 Room Air Laboratory Results Short CBC 03/14/22 Range/Units 07:00 WBC 21.29 H (4.8-10.8) K/ul Hgb 13.3 L (14.0-18.0) g/dl Hct 37.6 L (40.1-51.0) % Plt Count 201 (130-400) K/uL
== END 2022-03-14 13:39 | disposition home or self-care (01) | DRG 454 ==
LOC: ASU 06:16 → 3E 09:42